=== PATIENT | female | born 1965 | race African-American/Black ===

== ENCOUNTER 2020-04-05 13:15 | Emergency (ER) | payer OTHER ==
[2020-04-05] MEDS ORDERED: MORPHINE SULFATE 10 MG/ML INJ IV ONE (14:01)
[2020-04-05] MEDS ORDERED: ONDANSETRON HCL INJ/PF 4 MG/2 ML SDV IV ONE (14:01)
--- NOTE | 2020-04-05 14:06 | ER Document Report ---
ED General - General Chief Complaint: Fall Injury Stated Complaint: ARM INJURY Primary Care Provider: BISHNU DELUNA APRN [Primary Care Provider] - Follow up as needed Notes: Patient is a 54-year-old -[place] female with a history of hypertension who presents the emergency department the chief complaint of right arm injury after a fall. Patient states she was walking through a restaurant when she slipped on a puddle causing her feet to go from underneath her falling backwards striking the back of her head on the ground. She cannot specifically recall if she lost consciousness. She states that after she got up she felt dizzy and disoriented. She states she had a slight headache at that time. She reports that the dizziness, headache and disorientation have since resolved. She reports discomfort mainly in the right wrist but involving the entire right arm. Reports trying to stop herself from falling with the right arm. Admits to some numbness and tingling in the fingers of the right hand. Denies any visual disturbances or neck pain. No chest pain or shortness of breath. No abdominal pain. No back pain. EMS gave fentanyl in route, patient reports pain was improved for a short duration but the medicine is wearing off. TRAVEL OUTSIDE OF THE [place] IN LAST 30 DAYS: No - Related Data Allergies/Adverse Reactions: Penicillins Allergy (Mild, Verified 04/05/20 15:27) itchy Home Medications: ASA, Micardis, HCTZ, lipitor, vesicare Past Medical History - Social History Smoking Status: Never Smoker Frequency of alcohol use: None Drug Abuse: None Family History: Reviewed & Not Pertinent - Past Medical History Cardiac Medical History: Reports: Hx Coronary Artery Disease, Hx Hypertension Denies: Hx Heart Attack Pulmonary Medical History: Denies: Hx Asthma, Hx Bronchitis, Hx COPD, Hx Pneumonia Neurological Medical History: Denies: Hx Cerebrovascular Accident, Hx Seizures Musculoskeletal Medical History: Denies Hx Arthritis Past Surgical History: Reports: Hx Breast Surgery - reduction, Hx Hysterectomy. Denies: Hx Pacemaker - Immunizations Hx Diphtheria, Pertussis, Tetanus Vaccination: Yes Review of Systems - Review of Systems Constitutional: denies: Fever EENT: denies: Throat pain Cardiovascular: Dizziness Respiratory: denies: Cough Gastrointestinal: denies: Vomiting Genitourinary: denies: Pain Female Genitourinary: denies: Vaginal discharge Musculoskeletal: Joint pain, Joint swelling Hematologic/Lymphatic: denies: Easy bleeding Neurological/Psychological: Headaches Physical Exam - Vital signs Vitals: Temp 99.6 F 04/05/20 13:24 - General General appearance: Appears well, Alert In distress: None - HEENT Head: Normocephalic, Atraumatic Eyes: Normal Conjunctiva: Normal Extraocular movements intact: Yes Eyelashes: Normal Pupils: PERRL Ears: Normal External canal: Normal Tympanic membrane: Normal Neck: Normal, Supple, Other - Nontender - Respiratory Respiratory status: No respiratory distress Chest status: Nontender Breath sounds: Normal Chest palpation: Normal - Cardiovascular Rhythm: Regular Heart sounds: Normal auscultation - Extremities Wrist: Other - Obvious deformity to the right wrist dorsally and medially. 2+ radial of the right wrist. Good cap refill in all the fingers distally. Decreased range of motion secondary to pain and deformity. Diffuse tenderness with palpation of the right hand, right forearm, right humeral region. Full passive range of motion of the right elbow and right shoulder. - Neurological Neuro grossly intact: Yes Cognition: Normal Orientation: AAOx4 [place] Coma Scale Eye Opening: Spontaneous [place] Coma Scale Verbal: Oriented [place] Coma Scale Motor: Obeys Commands [place] Coma Scale Total: 15 Speech: Normal Cranial nerves: Normal - Psychological Associated symptoms: Normal affect, Normal mood - Skin Skin Temperature: Warm Skin Moisture: Dry Skin Color: Normal Course - Re-evaluation Re-evalutation: 04/05/20 15:[address] Adame, orthopedist field identification specialist. He reviewed the patient's x-ray and requested CT scan of the wrist for better evaluation and recommended splint placement and follow-up tomorrow in his office. I discussed this with the patient, they are in agreement with plan. They report they will see him tomorrow as discussed. Pending CT, will have the images placed on a CD for the patient to take to Dr. Adame's office. Patient will be sent with a course of pain medications, splint and sling. Remaining images were negative per radiologist. 04/05/20 16:59 CT obtained. They are placing images on a disc. Patient was splinted by nursing staff, status post neurovascular intact evaluated by me. Sling for comfort. Short course of [place] to go home with. She will follow-up with Dr. Adame tomorrow. Counseled her regarding the importance of outpatient follow-up and advised she return here or any ER immediately with any new, persistent or worsening symptoms. She verbalized understood and agreed. - Vital Signs Vital signs: Temp Pulse Resp BP Pulse Ox 99.6 F 68 18 165/72 H 99 04/05/20 13:35 04/05/20 13:35 04/05/20 13:35 04/05/20 13:35 04/05/20 13:35 Discharge - Discharge Clinical Impression: Wrist fracture Qualifiers: Encounter type: initial encounter Fracture type: closed Laterality: right Qualified Code(s): S62.101A - Fracture of unspecified carpal bone, right wrist, initial encounter for closed fracture Condition: Stable Disposition: HOME, SELF-CARE Instructions: Temporary Splint ([facility]) Additional Instructions: Please call Dr. Adame's office first thing tomorrow morning for a same-day appointment. Please return here or any ER immediately with any new, persistent or worsening symptoms. Prescriptions: Hydrocodone/Acetaminophen [[place] 10-325 Tablet] 1 each PO Q6 PRN #12 tablet PRN Reason: Referrals: BISHNU DELUNA APRN [Primary Care Provider] - Follow up as needed KHADIJAH ADAME JR, DO [ACTIVE PROVISIONAL STAFF] - Follow up as needed
--- NOTE | 2020-04-05 14:38 | RADIOLOGY REPORT (SQ) ---
EXAM DESCRIPTION: CT HEAD WITHOUT IMAGES COMPLETED DATE/TIME: 04/05/2020 2:29 pm REASON FOR STUDY: ? LOC head injury COMPARISON: None. TECHNIQUE: Axial images acquired through the brain without intravenous contrast. Images reviewed wi th bone, brain and subdural windows. Additional sagittal and coronal reconstructions were generated. Images stored on PACS. All CT scanners at this facility use dose modulation, iterative reconstruction, and/or weight based d osing when appropriate to reduce radiation dose to as low as reasonably achievable (ALARA). [facility]: Dose Right [facility]: CareDose [facility]: Dose Right [facility]: Teradose 4D [facility]: [employer] RADIATION DOSE: CT Rad equipment meets quality standard of care and radiation dose reduction techniq ues were employed. CTDIvol: 48.7 mGy. DLP: 1004 mGy-cm. mGy. LIMITATIONS: None. FINDINGS: VENTRICLES: Normal size and contour. CEREBRUM: No masses. No hemorrhage. No midline shift. No evidence for acute infarction. Normal gra y/white matter differentiation. No areas of low density in the white matter. CEREBELLUM: No masses. No hemorrhage. No alteration of density. No evidence for acute infarction. EXTRAAXIAL SPACES: No fluid collections. No masses. ORBITS AND GLOBE: No intra- or extraconal masses. Normal contour of globe without masses. CALVARIUM: No fracture. PARANASAL SINUSES: No fluid or mucosal thickening. SOFT TISSUES: No mass or hematoma. OTHER: No other significant finding. IMPRESSION: NORMAL BRAIN CT WITHOUT CONTRAST. EVIDENCE OF ACUTE STROKE: NO. COMMENT: Quality ID # [id number]: Final reports with documentation of one or more dose reduction techniques (e.g., Automated exposure control, adjustment of the mA and/or kV according to patient size, use of iterative reconstruction technique) TECHNICAL DOCUMENTATION: JOB ID: [id number] 2010 [employer]- All Rights Reserved Reading location - IP/workstation name: [email or web address]
--- NOTE | 2020-04-05 14:40 | RADIOLOGY REPORT (SQ) ---
EXAM DESCRIPTION: CT CERVICAL SPINE WITHOUT IMAGES COMPLETED DATE/TIME: 04/05/2020 2:29 pm REASON FOR STUDY: ? LOC head injury COMPARISON: None. TECHNIQUE: Axial images acquired through the cervical spine without intravenous contrast. Images re viewed with lung, soft tissue and bone windows. Reconstructed coronal and sagittal MPR images review ed. Images stored on PACS. All CT scanners at this facility use dose modulation, iterative reconstruction, and/or weight based d osing when appropriate to reduce radiation dose to as low as reasonably achievable (ALARA). [facility]: Dose Right [facility]: CareDose [facility]: Dose Right [facility]: Teradose 4D [facility]: [employer] RADIATION DOSE: CT Rad equipment meets quality standard of care and radiation dose reduction techniq ues were employed. CTDIvol: 24.4 mGy. DLP: 594 mGy-cm. mGy. LIMITATIONS: None. FINDINGS: ALIGNMENT: Anatomic. MINERALIZATION: Normal. VERTEBRAL BODIES: No fractures or dislocation. DISCS: Mild disc narrowing at C5-6 and C6-7. FACETS, LATERAL MASSES, POSTERIOR ELEMENTS: No fractures. No dislocation. No acute findings. HARDWARE: None in the spine. VISUALIZED RIBS: No fractures. LUNG APICES AND SOFT TISSUES: No significant or acute findings. OTHER: No other significant finding. IMPRESSION: Mild degenerative disc changes. No acute finding. TECHNICAL DOCUMENTATION: JOB ID: [id number] Quality ID # [id number]: Final reports with documentation of one or more dose reduction techniques (e.g., Au tomated exposure control, adjustment of the mA and/or kV according to patient size, use of iterative reconstruction technique) 2010 [employer]- All Rights Reserved Reading location - IP/workstation name: [email or web address]
--- NOTE | 2020-04-05 15:23 | RADIOLOGY REPORT (SQ) ---
EXAM DESCRIPTION: ELBOW RIGHT AP/LAT IMAGES COMPLETED DATE/TIME: 04/05/2020 3:12 pm REASON FOR STUDY: pain, wrist deformity s/p fall COMPARISON: None. NUMBER OF VIEWS: Two views. TECHNIQUE: AP and lateral radiographic images acquired of the right elbow. LIMITATIONS: None. FINDINGS: MINERALIZATION: Normal. BONES: No acute fracture or dislocation. No worrisome bone lesions. JOINT: No effusion. SOFT TISSUES: No soft tissue swelling. No foreign body. OTHER: No other significant finding. IMPRESSION: NEGATIVE STUDY OF THE RIGHT ELBOW. NO RADIOGRAPHIC EVIDENCE OF ACUTE INJURY. TECHNICAL DOCUMENTATION: JOB ID: [id number] 2010 [employer]- All Rights Reserved Reading location - IP/workstation name: [email or web address]
--- NOTE | 2020-04-05 15:24 | RADIOLOGY REPORT (SQ) ---
EXAM DESCRIPTION: HUMERUS RIGHT IMAGES COMPLETED DATE/TIME: 04/05/2020 3:12 pm REASON FOR STUDY: pain, wrist deformity s/p fall COMPARISON: None. NUMBER OF VIEWS: Two views. TECHNIQUE: Two radiographic images were acquired of the right humerus to include elbow and shoulder in at least one projection. LIMITATIONS: None. FINDINGS: MINERALIZATION: Normal. BONES: No acute fracture or dislocation. No worrisome bone lesions. SOFT TISSUES: No obvious swelling or foreign body. OTHER: No other significant finding. IMPRESSION: NEGATIVE STUDY OF THE RIGHT HUMERUS. NO RADIOGRAPHIC EVIDENCE OF ACUTE INJURY. TECHNICAL DOCUMENTATION: JOB ID: [id number] 2010 [employer]- All Rights Reserved Reading location - IP/workstation name: [email or web address]
--- NOTE | 2020-04-05 15:26 | RADIOLOGY REPORT (SQ) ---
EXAM DESCRIPTION: WRIST RIGHT 3 VIEWS IMAGES COMPLETED DATE/TIME: 04/05/2020 3:12 pm REASON FOR STUDY: pain, wrist deformity s/p fall COMPARISON: None. NUMBER OF VIEWS: Three views. TECHNIQUE: AP, lateral, and oblique radiographic images acquired of the right wrist. LIMITATIONS: None. FINDINGS: MINERALIZATION: Normal. BONES: There is a comminuted fracture of the distal radius demonstrating complex intra-articular exte nsion with gaps within the articular surface. There is a minimally displaced ulnar styloid fracture. SOFT TISSUES: Soft tissue swelling surrounds the injury site. No retained radiopaque foreign body. OTHER: No other significant finding. IMPRESSION: Comminuted fracture of the distal radius demonstrating complex intraarticular extension. Minimally displaced ulnar styloid fracture. TECHNICAL DOCUMENTATION: JOB ID: [id number] 2010 [employer]- All Rights Reserved Reading location - IP/workstation name: [email or web address]
--- NOTE | 2020-04-05 15:26 | RADIOLOGY REPORT (SQ) ---
EXAM DESCRIPTION: SHOULDER RIGHT 2 OR MORE VIEWS IMAGES COMPLETED DATE/TIME: 04/05/2020 3:12 pm REASON FOR STUDY: pain, wrist deformity s/p fall COMPARISON: None. NUMBER OF VIEWS: Three views. TECHNIQUE: Internal rotation, external rotation, and Y view images acquired of the right shoulder. LIMITATIONS: None. FINDINGS: MINERALIZATION: Normal. BONES: No acute fracture. No worrisome bone lesions. JOINTS: No dislocation. VISUALIZED LUNGS AND RIBS: No pneumothorax. No rib fracture. SOFT TISSUES: No radiopaque foreign body. OTHER: No other significant finding. IMPRESSION: NEGATIVE STUDY OF THE RIGHT SHOULDER. NO RADIOGRAPHIC EVIDENCE OF ACUTE INJURY. TECHNICAL DOCUMENTATION: JOB ID: [id number] 2010 [employer]- All Rights Reserved Reading location - IP/workstation name: [email or web address]
--- NOTE | 2020-04-05 17:06 | RADIOLOGY REPORT (SQ) ---
EXAM DESCRIPTION: CT RT UPPER EXTREMITY WITHOUT IMAGES COMPLETED DATE/TIME: 04/05/2020 4:36 pm REASON FOR STUDY: fx R wrist COMPARISON: None. TECHNIQUE: Axial imaging performed through the right wrist with reformatted coronal and sagittal carlos ging windowed for bone and soft tissues. Images saved to PACS. 3D IMAGING: Were 3D images as MIP, SSD, or volume rendering performed at the work station? No. All CT scanners at this facility use dose modulation, iterative reconstruction, and/or weight based d osing when appropriate to reduce radiation dose to as low as reasonably achievable (ALARA). [facility]: Dose Right [facility]: CareDose [facility]: Dose Right [facility]: Teradose 4D [facility]: [employer] LIMITATIONS: None. RADIATION DOSE: CT Rad equipment meets quality standard of care and radiation dose reduction techniq ues were employed. CTDIvol: 2.6 mGy. DLP: 40 mGy-cm. mGy. FINDINGS: SOFT TISSUES: Mild circumferential soft tissue edema is present. BONES: There is a comminuted fracture of the distal radius demonstrating intra-articular extension wi th up to 3 mm in depression of the articular surface with multiple 3 mm gap. There is a nondisplaced ulnar styloid fracture. There may be a nondisplaced lunate fracture as well (few subtle lateral cor tical lucencies and longitudinal orientation). MINERALIZATION: Normal. OTHER: No other significant finding. IMPRESSION: Comminuted fracture of the distal radius demonstrating intra-articular extension. Nondi splaced ulnar styloid fracture. Possible nondisplaced longitudinal fracture of the ulnar aspect of t he lunate. TECHNICAL DOCUMENTATION: JOB ID: [id number] Quality ID # [id number]: Final reports with documentation of one or more dose reduction techniques (e.g., Au tomated exposure control, adjustment of the mA and/or kV according to patient size, use of iterative reconstruction technique) 2010 [employer]- All Rights Reserved Reading location - IP/workstation name: [email or web address]
[2020-04-05 17:41] VITALS: BP 152/78
== END 2020-04-05 17:40 | disposition home or self-care (01) ==
LOC: ER 13:15
PROC: 2W3CX1Z Immobilization of Right Lower Arm using Splint (ICD-10-PCS; principal; 2020-04-05)
DX: S62.101A Fracture of unspecified carpal bone, right wrist, initial encounter for closed fracture (principal); M79.601 Pain in right arm; R42 Dizziness and giddiness; R51 Headache; R41.0 Disorientation, unspecified; W01.0XXA Fall on same level from slipping, tripping and stumbling without subsequent striking against object, initial encounter; Z88.0 Allergy status to penicillin; Z79.82 Long term (current) use of aspirin; Z79.899 Other long term (current) drug therapy; I25.10 Atherosclerotic heart disease of native coronary artery without angina pectoris; I10 Essential (primary) hypertension
CPT/HCPCS: 99285; 96372; 96374; 73070; 73060; 73030; 73110; 70450; 72125; 73200; 29125; J2270; J2405

== ENCOUNTER 2020-04-17 09:32 | Day surgery (SDC) | payer OTHER ==
[2020-04-12 13:05] LABS: HEMATOCRIT 39.1 % (36.0-47.0); HEMOGLOBIN 13.3 g/dL (12.0-15.5); MEAN CORPUSCULAR VOLUME 85 fl (80-97); PLATELET COUNT 282 10^3/uL (150-450); RED BLOOD COUNT 4.58 10^6/uL (3.72-5.28); RED CELL DISTRIBUTION WIDTH 13.8 % (11.5-14.0); WHITE BLOOD COUNT 7.7 10^3/uL (4.0-10.5)
[2020-04-12 13:05] LABS: APPEARANCE,URINE SLIGHTLY-CLOUDY; BILIRUBIN,URINE NEGATIVE (NEGATIVE); COLOR,URINE YELLOW; GLUCOSE, URINE NEGATIVE (NEGATIVE); KETONES,URINE NEGATIVE (NEGATIVE); LEUKOCYTE ESTERASE,URINE TRACE (NEGATIVE); NITRITE,URINE NEGATIVE (NEGATIVE); PROTEIN,URINE NEGATIVE (NEGATIVE); URINE SPECIFIC GRAVITY 1.023; UROBILINOGEN,URINE NEGATIVE mg/dL (<2.0)
--- NOTE | 2020-04-12 13:42 | RADIOLOGY REPORT (SQ) ---
EXAM DESCRIPTION: CHEST PA/LATERAL IMAGES COMPLETED DATE/TIME: 04/12/2020 1:09 pm REASON FOR STUDY: PRE-OP COMPARISON: None. EXAM PARAMETERS: NUMBER OF VIEWS: two views TECHNIQUE: Digital Frontal and Lateral radiographic views of the chest acquired. RADIATION DOSE: NA LIMITATIONS: none FINDINGS: LUNGS AND PLEURA: No opacities, masses or pneumothorax. No pleural effusion. MEDIASTINUM AND HILAR STRUCTURES: No masses or contour abnormalities. HEART AND VASCULAR STRUCTURES: Heart normal size. No evidence for failure. BONES: No acute findings. HARDWARE: None in the chest. OTHER: No other significant finding. IMPRESSION: NO SIGNIFICANT RADIOGRAPHIC FINDING IN THE CHEST. TECHNICAL DOCUMENTATION: JOB ID: [id number] 2010 [employer]- All Rights Reserved Reading location - IP/workstation name: [email or web address]
[2020-04-12 13:43] LABS: ANION GAP 8 (5-19); BLOOD UREA NITROGEN 14 mg/dL (7-20); CALCIUM 9.7 mg/dL (8.4-10.2); CARBON DIOXIDE 29 mmol/L (22-30); CHLORIDE 103 mmol/L (98-107); GLUCOSE 92 mg/dL (75-110)
--- NOTE | 2020-04-12 13:50 | EKG REPORT ---
SEVERITY:- ABNORMAL ECG - SINUS RHYTHM CONSIDER ANTEROSEPTAL INFARCT NONSPECIFIC T ABNORMALITIES, INFERIOR LEADS : Confirmed by: Yuval Peña MD 12-Apr-2020 13:49:39
[~2020-04-17 09:32] MED LIST: DEXAMETHASONE SOD PHOSPHATE INJ 4 MG/1 ML VIAL ONE; FENTANYL CITRATE INJ/PF 100 MCG/2 ML AMPUL ONE; LACTATED RINGERS 1000 ML IV PRN; LIDOCAINE 0.5% INJ-PF (5 MG/ML) 50 ML SDV SUBCUT PRN; MIDAZOLAM 2 MG/2 ML INJ ONE; ONDANSETRON HCL INJ/PF 4 MG/2 ML SDV ONE; PROPOFOL INJ 200 MG/20 ML VIAL IV ONE
[2020-04-17] MEDS ORDERED: GLYCOPYRROLATE 1 MG/5 ML VIAL ONE (10:01)
[2020-04-17] MEDS ORDERED: CEFAZOLIN 2 GM/D5W RTU 2 GM/50 ML RTUPB IV ONE (10:17)
[2020-04-17] MEDS ORDERED: BUPIVACAINE HCL 0.25 % INJ/PF (2.5 MG/1 ML) 30 ML VIAL ONE (10:41)
[2020-04-17] MEDS ORDERED: MIDAZOLAM 2 MG/2 ML INJ ONE ×2 (10:42→13:49)
[2020-04-17] MEDS ORDERED: FENTANYL CITRATE INJ/PF 100 MCG/2 ML AMPUL ONE ×2 (10:42→13:48)
[2020-04-17] MEDS ORDERED: ONDANSETRON HCL INJ/PF 4 MG/2 ML SDV ONE (13:49)
[2020-04-17] MEDS ORDERED: DEXAMETHASONE SOD PHOSPHATE INJ 4 MG/1 ML VIAL ONE (13:49)
[2020-04-17] MEDS ORDERED: PROPOFOL INJ 200 MG/20 ML VIAL IV ONE (13:49)
--- NOTE | 2020-04-17 13:52 | PDOC PROGRESS REPORT ---
Subjective Progress Note for:: 04/17/20 Subjective:: Patient seen and evaluated in the preoperative holding area. Patient states pain is currently controlled however worse with any motion. Denies numbness or tingling. Pain 4/10. Reason For Visit: ORIF RIGHT DISTAL RADIUS Physical Exam Vital Signs: Temp Pulse Resp BP Pulse Ox 98.5 F 59 L 16 155/79 H 97 04/17/20 10:15 04/17/20 10:15 04/17/20 10:15 04/17/20 10:15 04/17/20 10:15 Intake & Output 04/16/20 04/17/20 04/18/20 06:59 06:59 06:59 Intake Total 0 Balance 0 Weight 92.99 kg General appearance: PRESENT: no acute distress, well-developed, well-nourished Head exam: PRESENT: atraumatic, normocephalic Eye exam: PRESENT: conjunctiva pink, EOMI, PERRLA. ABSENT: scleral icterus Ear exam: PRESENT: normal external ear exam Mouth exam: PRESENT: moist, tongue midline Neck exam: PRESENT: full ROM. ABSENT: carotid bruit, JVD, lymphadenopathy, thyromegaly Cardiovascular exam: PRESENT: RRR. ABSENT: diastolic murmur, rubs, systolic murmur Pulses: PRESENT: normal dorsalis pedis pul, +2 pedal pulses bilateral Vascular exam: PRESENT: normal capillary refill GI/Abdominal exam: PRESENT: normal bowel sounds, soft. ABSENT: distended, guarding, mass, organolmegaly, rebound, tenderness Rectal exam: PRESENT: deferred Musculoskeletal exam: PRESENT: other - Right wrist: Splint clean/dry/intact. Intact flexion/extension IP/MP joints. Compartment soft and compressible no sign of compartment syndrome. Two-point discrimination 5 mm median and ulnar nerve distribution. Neurological exam: PRESENT: alert, awake, oriented to person, oriented to place, oriented to time, oriented to situation, CN II-XII grossly intact. ABSENT: motor sensory deficit Psychiatric exam: PRESENT: appropriate affect, normal mood. ABSENT: homicidal ideation, suicidal ideation Skin exam: PRESENT: dry, intact, warm. ABSENT: cyanosis, rash Results Laboratory Results: 04/12/20 12:08 04/17/20 09:54 04/17/20 09:54 Potassium 3.6 Impressions: Chest X-Ray 04/12/20 00:00 IMPRESSION: NO SIGNIFICANT RADIOGRAPHIC FINDING IN THE CHEST. Assessment & Plan - Diagnosis (1) Distal radius fracture, right Qualifiers: Encounter type: subsequent encounter Fracture type: closed Fracture morphology: other intra-articular Is this a current diagnosis for this admission?: Yes Plan: Patient sustained severe intra-articular distal radius fracture with multiple parts. Given the severity of patient's injury she would benefit from operative intervention including open reduction internal fixation but understands the limitations of surgery including high risk of developing posttraumatic arthritis also risk of requiring additional surgery for hardware removal. After discussing risks and benefits joint decision was made to proceed with right open reduction internal fixation distal radius fracture with possible bridge plate. Additional risk include anesthetic complications, excessive bleeding, infection, injury to surrounding nerves, vessels and tendons, bruising, healing difficulties, scar formation, hardware complication, posttraumatic arthritis and any unforseen complication. - Time Time Spent with patient: Less than 15 minutes
[2020-04-17] MEDS ORDERED: ONDANSETRON HCL INJ/PF 4 MG/2 ML SDV IV PRN (14:39)
[2020-04-17] MEDS ORDERED: PROMETHAZINE HCL INJ 25 MG/1 ML VIAL IV PRN (14:39)
[2020-04-17] MEDS ORDERED: DIPHENHYDRAMINE HCL 50 MG/ML VIAL IV PRN (14:39)
[2020-04-17] MEDS ORDERED: FENTANYL CITRATE INJ/PF 100 MCG/2 ML AMPUL IV PRN ×2 (14:39)
[2020-04-17] MEDS ORDERED: MEPERIDINE HCL/PF INJ 25 MG/1 ML DISP.SYRIN IV PRN (14:39)
--- NOTE | 2020-04-17 16:34 | Operative Report ---
Operative Report DATE OF SURGERY: 04/17/20 PREOPERATIVE DIAGNOSIS: Right >3 part intra-articular distal radius fracture POSTOPERATIVE DIAGNOSIS: Same OPERATION: Open reduction fixation >3 part intra-articular distal radius fracture via dorsal approach SURGEON: JESUS MARTINEZ ANESTHESIA: GA COMPLICATIONS: None ESTIMATED BLOOD LOSS: Minimal PROCEDURE: Indication for above procedure: Pleasant 54-year-old female who sustained a fall at a restaurant onto her outstretched right wrist. Patient was seen at the emergency room where x-rays demonstrated comminuted intra-articular distal radius fracture. Patient was originally seen at our office facility and decision was made to proceed with operative intervention. Preoperatively I discussed treatment options including operative versus nonoperative intervention and severity of patient's injury after discussing his options decision was made to proceed with operative treatment. Procedure In Detail: Patient was seen and evaluated in the preoperative holding area. The upper extremity was initialized and marked. Patient received Ancef IV for bacterial prophylaxis. Patient was taken back to the operative room where transferred to the operative table and placed under general anesthesia. Once they were adequately anesthetized a nonsterile tourniquet was placed on the upper extremity. A surgical team debriefing was performed ensuring all instrumentation was available, the surgical procedure was discussed with possible concerns reviewed. The upper extremity was prepped with chlorhexidine and alcohol and draped in a sterile fashion. A timeout was done identifying correct patient, procedure and extremity everyone in attendance agree with this and verbalized no concerns. The extremity was exsanguinated the tourniquet was inflated to 250 mmHg. Longitudinal skin incision was made just ulnar to Marianna's tubercle in line with the second metacarpal base. Blunt dissection was performed. Any small peripheral veins were coagulated bipolar cautery. Superficial radial nerve was identified and retracted. EPL tendon was then released from the third dorsal compartment and retracted. Second and fourth dorsal compartments were then elevated successfully exposing the dorsal aspect of the distal radius. Longitudinal capsulotomy was made centered over the radial styloid. Finger traps and weights were then placed in order to obtain traction. The dorsal cortex was then booked open to identify the articular surface. Articular surface was then reduced under direct visualization provisionally fixated with K wires. C-arm fluoroscopy was then obtained which demonstrated acceptable reduction. Direct visualization of the articular surface demonstrated no evidence of step-off or diastases. A Acumed dorsal distal radius plate was then applied and fixated to the shaft through the dynamic hole. Further manipulation to the plate was performed in order to place it in an advantageous position it was then fixated provisionally with K wires. C arm fluoroscopy was obtained demonstrating septal reduction of the articular surface of fracture and appropriate placement of the plate. The ulnar column was then initially fixated with locking screws drilling to but not through the far cortex. The styloid fragment was then held with a reduction tenaculum and a K wire from the plate placed. These were then fixated with variable angle locking screws in order to obtain desired fixation. Once distal fixation was complete the wrist was placed through range of motion there is no evidence of collapse or motion at the fracture site. Proximal aspect of the plate was then fixated with additional cortex screw and appropriate size locking screw at the most distal shaft hole. Wound was then copiously irrigated with normal saline. Final C arm was obtained demonstrating acceptable reduction of articular surface and distal radius. Negative De Dios's test. No evidence of DRUJ instability with manipulation. No crepitus with DRUJ or radiocarpal range of motion. Capsule was closed with interrupted 3-0 Vicryl suture. A retinacular flap was placed across the plate to protect the second, third and fourth dorsal compartment. Tourniquet was then deflated and peripheral bleeding was controlled with bipolar cautery. Subcutaneous tissues were closed with interrupted 4-0 Monocryl suture. Skin was closed with running subcuticular 4-0 Monocryl reinforced with Dermabond and Steri-Strips. Patient was placed in a sugar tong splint with the wrist at neutral position. Sponge counts, instrument counts, needle counts were correct. Patient was then awoken from anesthesia. Transferred from the operating room table to the operating room stretcher. There was no intraoperative complications patient tolerated procedure well stable to PACU. Postop plan: Patient follow in the office in 2 weeks we will obtain radiographs and transition to a short arm cast. Plan will be for plate removal once radiographic healing is confirmed.
--- NOTE | 2020-04-17 17:03 | RADIOLOGY REPORT (SQ) ---
EXAM DESCRIPTION: NO CHG FLUORO; WRIST RIGHT 2 VIEWS IMAGES COMPLETED DATE/TIME: 04/17/2020 4:24 pm REASON FOR STUDY: ORIF RIGHT WRIST COMPARISON: None. FLUOROSCOPY TIME: 57 seconds 3 Images saved to PACS LIMITATIONS: None. PROCEDURE: ORIF right wrist FINDINGS: Images from fluoro document placement of a compression plate on the distal radius with mul tiple screws. IMPRESSION: ORIF right wrist. Refer to operative note for further information. COMMENT: PQRS 6045F: Fluoroscopy time of the procedure is documented in the report. TECHNICAL DOCUMENTATION: JOB ID: [id number] 2010 [employer]- All Rights Reserved Reading location - IP/workstation name: [email or web address]
--- NOTE | 2020-04-17 17:03 | RADIOLOGY REPORT (SQ) ---
EXAM DESCRIPTION: NO CHG FLUORO; WRIST RIGHT 2 VIEWS IMAGES COMPLETED DATE/TIME: 04/17/2020 4:24 pm REASON FOR STUDY: ORIF RIGHT WRIST COMPARISON: None. FLUOROSCOPY TIME: 57 seconds 3 Images saved to PACS LIMITATIONS: None. PROCEDURE: ORIF right wrist FINDINGS: Images from fluoro document placement of a compression plate on the distal radius with mul tiple screws. IMPRESSION: ORIF right wrist. Refer to operative note for further information. COMMENT: PQRS 6045F: Fluoroscopy time of the procedure is documented in the report. TECHNICAL DOCUMENTATION: JOB ID: [id number] 2010 [employer]- All Rights Reserved Reading location - IP/workstation name: [email or web address]
[2020-04-17 18:45] VITALS: BP 156/86
--- NOTE | 2020-04-24 10:06 | Discharge Summary ---
Discharge Summary (SDC) - Discharge Final Diagnosis: Right distal radius fracture Date of Surgery: 04/17/20 Discharge Date: 04/17/20 Condition: Good Treatment or Instructions: Schedule Follow Up w/ Dr. Yared Pabon @ [facility] for Surgery to be seen in 10-14 days or as scheduled [place]: [place]: [place]: Ice and elevate Keep splint clean/dry/intact, do not remove. If your fingers become numb please unwrap the Samm wrap but leave the splint in place, if the sensation does not return within 30 minutes please return to the emergency department. May begin finger range of motion attempting to make full fist. Please use ibuprofen (Motrin or Advil) 600-800 mg every 8 hours as needed for pain or fever DO NOT TAKE w/ TORADOL may use once TORADOL complete. You may also use acetaminophen (Tylenol) 1000 mg every 4-6 hours as needed for pain or fever. Please be aware that many medications contain acetaminophen, do not exceed a total of 1000 mg of acetaminophen every 6 hours. If ibuprofen and acetaminophen are not sufficient for your pain you may take the Percocet/[place]. Please be aware that the Percocet/[place] does contain Tylenol. Stool softener of choice when on pain medication. USE OF [id number] IBUPROFEN: Ibuprofen (Advil, Nuprin, Medipren, Motrin IB) is a medication for fever and pain control. In addition, it has anti- inflammatory effects which may be beneficial, especially in the treatment of injuries. It's best to take ibuprofen with food. Persons with ulcer disease or allergy to aspirin should notify their physician of this before taking ibuprofen. Ibuprofen can be given every four to six hours, for a total of four doses daily. Age Pain or fever dose Antiinflammatory dose 6-8 yr 200 mg (1 tab) 200 mg (1 tab) 9-11 yr 200 mg (1 tab) 200-400 mg (1-2 tab) 11-14 yr 200-400 mg (1-2 tab) 400 mg (2 tab) 15-adult 400 mg (2 tab) 600 mg (3 tab) ORAL NARCOTIC MEDICATION: You have been given a prescription for pain control. This medication is a narcotic. It's best taken with food, as nausea can result if taken on an empty stomach. Don't operate machinery or drive within six hours of taking this medication. Do not combine this medicine with alcohol, or with any medication which can cause sedation (such as cold tablets or sleeping pills) unless you get permission from the physician. Narcotics tend to cause constipation. If possible, drink plenty of fluids and eat a diet high in fiber and fruits. Please be aware that prescription narcotics also have the potential for abuse. People become addicted to these medications because of the general sense of wellbeing that they induce. This feeling along with a significant reduction in tension, anxiety, and aggression provides a stimulating seductive quality to these drugs. Once your pain is under control, we encourage you to discard your unused narcotics. Prescriptions: Oxycodone HCl/Acetaminophen [Percocet 7.5-325 mg Tablet] 1 tab PO Q6 PRN #25 tab PRN Reason: Referrals: MARIE LEYVA NP [Primary Care Provider] - Discharge Diet: As Tolerated Respiratory Treatments at Home: Deep Breathing/Coughing, Incentive Spirometer Discharge Activity: No Lifting Over 10 Pounds, No Lifting/Push/Pulling Report the Following to Your Physician Immediately: Fever over 101 Degrees, Unusual Bleeding, Redness, Swelling, Warmth, Increased Soreness
== END 2020-04-17 18:45 | disposition home or self-care (01) ==
LOC: OROUT 09:32
PROVIDERS: ATTEND Orthopaedic Surgery
DX: S52.571A Other intraarticular fracture of lower end of right radius, initial encounter for closed fracture (principal); W19.XXXA Unspecified fall, initial encounter; Y92.511 Restaurant or cafe as the place of occurrence of the external cause; I10 Essential (primary) hypertension; E78.5 Hyperlipidemia, unspecified; N32.81 Overactive bladder; Z79.899 Other long term (current) drug therapy; Z79.82 Long term (current) use of aspirin; Z88.0 Allergy status to penicillin; Z03.818 Encounter for observation for suspected exposure to other biological agents ruled out
CPT/HCPCS: 25609; 93005; 36415 ×2; 84132; 85027; 87635; 80048; 81001; 71046; 73100; 93010; 64415; 76942; 01830; C1713 ×9; C1769; J2250; J1100; J3010; J2405; J2704; J0690; J3490; C9803